=== PATIENT | male | born 1955 | race Caucasian/White ===

== ENCOUNTER 2019-05-25 20:55 | Emergency (ER) | payer MEDICARE, OTHER ==
[~2019-05-25] VITALS: Ht 175 cm; Wt 131.0 kg
[2019-05-25 21:22] LABS: BASOPHILS % (AUTO) 0 % (0-10); EOSINOPHILS # (AUTO) 0.1 10^3/uL (0.0-0.3); EOSINOPHILS % (AUTO) 1 % (0-10); HEMATOCRIT 32 % (40-54); HEMOGLOBIN 10.3 G/DL (13.3-17.7); LYMPHOCYTES # (AUTO) 1.1 X 10^3 (1.0-4.0); LYMPHOCYTES % (AUTO) 8 % (12-44); MEAN CORPUSCULAR HEMOGLOBIN 28 PG (25-34); MEAN CORPUSCULAR HGB CONC 33 G/DL (32-36); MEAN CORPUSCULAR VOLUME 85 FL (80-99); MEAN PLATELET VOLUME 9.6 FL (7.4-10.4); MONOCYTES # (AUTO) 0.8 X 10^3 (0.0-1.0); MONOCYTES % (AUTO) 5 % (0-12); NEUTROPHILS # (AUTO) 13.2 X 10^3 (1.8-7.8); NEUTROPHILS % (AUTO) 87 % (42-75); PLATELET COUNT 450 10^3/uL (130-400); RED CELL DISTRIBUTION WIDTH 14.9 % (10.0-14.5); WHITE BLOOD COUNT 15.2 10^3/uL (4.3-11.0)
[2019-05-25 21:33] LABS: INR 1.2 (0.8-1.4); PROTHROMBIN TIME PATIENT 15.6 SEC (12.2-14.7)
[2019-05-25 21:41] LABS: ALANINE AMINOTRANSFERASE 35 U/L (0-55); ALBUMIN 3.1 GM/DL (3.2-4.5); ALKALINE PHOSPHATASE 163 U/L (40-136); AMYLASE 43 U/L (25-125); BILIRUBIN,TOTAL 0.3 MG/DL (0.1-1.0); BUN/CREATININE RATIO 14; CALCIUM 10.2 MG/DL (8.5-10.1); CARBON DIOXIDE 14 MMOL/L (21-32); CHLORIDE 110 MMOL/L (98-107); CREATINE KINASE 20 U/L (30-200); CREATININE SERUM 4.61 MG/DL (0.60-1.30); GFR ESTIMATED 13; GLUCOSE 220 MG/DL (70-105); LIPASE 29 U/L (8-78); MAGNESIUM 2.7 MG/DL (1.6-2.4); POTASSIUM 5.9 MMOL/L (3.6-5.0); SODIUM 138 MMOL/L (135-145); TOTAL PROTEIN 8.7 GM/DL (6.4-8.2)
[2019-05-25 21:43] LABS: EOSINOPHILS % (MANUAL) 1 %; LYMPHOCYTES % (MANUAL) 10 %; MONOCYTES % (MANUAL) 3 %; NEUTROPHILS % (MANUAL) 86 %; POIKILOCYTOSIS SLIGHT
[2019-05-25 21:47] LABS: BILIRUBIN,URINE NEGATIVE (NEGATIVE); CLARITY,URINE CLEAR; COLOR,URINE YELLOW; GLUCOSE, URINE (UA) NEGATIVE (NEGATIVE); KETONES,URINE 1+ (NEGATIVE); LEUKOCYTE ESTERASE ,URINE NEGATIVE (NEGATIVE); NITRITE,URINE NEGATIVE (NEGATIVE); PH,URINE 5 (5-9); PROTEIN,URINE 2+ (NEGATIVE); UROBILINOGEN,URINE NORMAL (NORMAL)
[2019-05-25 21:49] LABS: CREATINE KINASE MB 0.9 NG/ML (<6.6)
[2019-05-25 22:00] LABS: BACTERIA,URINE FEW /HPF; CALCIUM OXALATE CRYSTALS,UR RARE /LPF; RBC,URINE 0-2 /HPF
[2019-05-25 22:01] LABS: AMORPHOUS SEDIMENT,UR MOD AMOR URATES /LPF
[2019-05-25] MEDS ORDERED: PIPERACILLIN SODIUM/TAZOBACTAM 4.5 GM in NS (IVPB) 100 ML IV ONE (22:15)
--- NOTE | 2019-05-25 22:16 | Diagnostic Imaging Report ---
INDICATION: Chest pain and shortness of breath. Frontal chest obtained at 0942 p.m. Heart and mediastinal silhouette are normal in appearance. The lungs are clear. There is no pneumothorax or pleural fluid. IMPRESSION: Negative chest. Dictated by: Dictated on workstation # [id number]
[2019-05-25] MEDS ORDERED: RT-ALBUTEROL SULF 2.5 MG/3 ML PRE-MIX VIAL INH STA (22:35)
[2019-05-25] MEDS ORDERED: CALCIUM GLUC. 10% 4.65 MEQ/10 ML VIAL IV ONE (22:45)
[2019-05-25] MEDS ORDERED: SOD POLYSTERENE 15 GM/60 ML (KAYEXALATE) UNIT DOSE PO ONE (22:45)
[2019-05-25] MEDS ORDERED: VANCOMYCIN INJECTION 1,000 MG in NS (IVPB) 250 ML IV ONE (22:45)
[2019-05-25] MEDS ORDERED: inSUlin (REGULAR) HUMAN 1 UNIT/0.01 ML (CHARGE PER UNIT) IV ONE (22:45)
[2019-05-25 22:50] LABS: ABG BASE EXCESS -11.3 MMOL/L (-2.5-2.5); ABG OXYGEN SATURATION 97 % (94-100); ABG PCO2 28 MMHG (35-45); ABG PO2 94 MMHG (79-93); ABG TCO2 14.5 MMOL/L (21.0-31.0)
[2019-05-25 22:53] LABS: ABG PH 7.31 (7.37-7.43); ALLENS TEST YES-POS; INSPIRED O2 ROOM AIR; VENTILATOR NO
[2019-05-25 22:54] LABS: PATIENT TEMP 36.9
[2019-05-25] MEDS ORDERED: NS IV 1000 ML 1,000 ML IV ONE (23:01)
[2019-05-25] MEDS ORDERED: ONDANSETRON 4 MG/2 ML (SDV) Z0FRAN IVP ONE (23:30)
[2019-05-26 01:04] VITALS: BP 128/86
--- NOTE | 2019-05-28 21:20 | ED General ---
General Chief Complaint: Respiratory Problems Stated Complaint: SOB,CHEST PAINS Nursing Triage Note: PT PRESENTS FROM HOME, VERBALIZES EXERTIONAL SOB THAT ONSET EARLIER TODAY. PT STATES HE IS A DIABETIC, HAS HAD DYSURIA FOR THE LAST 3-4 DAYS WITH PAIN, PT STATES HE HAS BILATERAL WOUNDS TO THE LOWER EXTERMITIES THAT HE BELIEVES ARE INFECTED. Nursing Sepsis Screen: Possible Sepsis Risk Source of Information: Patient (EXTREMELY POOR HISTORIAN AND IS ALSO HARD OF HEARING; BROTHER GIVES SOME HISTORY BUT IS ALSO A POOR HISTORIAN) History of Present Illness Date Seen by Provider: May 25, 2019 Time Seen by Provider: 21:10 Initial Comments PT ARRIVES VIA EMS--PT LIVES IN [place], [place] PT WITH MULTIPLE COMPLAINTS PT'S MAIN COMPLAINT ON ARRIVAL, IS PAIN/BURNING ON URINATION, URGENCY, FREQUENCY, INCONTINENCE PT ALSO C/O CHEST PAIN--STATES IT IS A SHARP PAIN--"IF I HICCUP, AN UNGODLY SHOOTING, STABBING PAIN GOES ALL ACROSS MY CHEST" ALSO HAS SAME PAIN IF HE COUGHS, OR MOVES, OR SNEEZES NO PAIN NOW ALSO C/O SHORTNESS OF BREATH AT TIMES, BUT NOT NOW NO KNOWN FEVER PT HAS NO IDEA WHAT HIS MEDICATIONS ARE, OR WHEN HE LAST TOOK THEM, OR WHEN HE LAST SAW A DR. STATES DR. HICKS IN [place] IS HIS DR. PT LIVES ALONE PT HAS BOTH LEGS WRAPPED TO HIS KNEES STATES HE USED TO SEE WOUND CARE FOR HIS LEGS, BUT "QUIT GOING OVER A YEAR AGO" STATES "THEY DIDN'T DO ANYTHING EXCEPT POUR SALINE OVER THEM" SO HE QUIT GOING. PT DOES ADMIT TO BEING DIABETIC, BUT DOES NOT CHECK BLOOD SUGAR AND DOES NOT KNOW WHAT MEDICATION HE TAKES FOR IT PT HAS NO PRIOR VISITS HERE, SO NO ADDITIONAL PMH IS OBTAINABLE PCP: DR. HICKS [place] Allergies and Home Medications Allergies Coded Allergies: bacitracin (Verified Allergy, Unknown, 05/25/19) codeine (Verified Allergy, Unknown, 05/25/19) neomycin (Verified Allergy, Unknown, 05/25/19) polymyxin B (Verified Allergy, Unknown, 05/25/19) Patient Home Medication List Home Medication List Reviewed: No (PT DOES NOT KNOW ANY OF HIS MEDICATIONS OR WHAT HE TAKES THEM FOR) Review of Systems Review of Systems Constitutional: No fever Respiratory: cough (OCCASIONAL), short of breath Cardiovascular: chest pain, edema Gastrointestinal: No abdominal pain, No nausea, No vomiting Genitourinary: see HPI, dysuria, frequency, incontinence Musculoskeletal: see HPI (PT DENIES ANY PAIN TO LEGS) Skin: no symptoms reported (DENIES ANY SKIN COMPLAINTS) Psychiatric/Neurological: No Symptoms Reported (DENIES ANY NUMBNESS OR TINGLING ANYWHERE OR ANY NEURO COMPLAINTS) Hematologic/Lymphatic: No Symptoms Reported Immunological/Allergic: no symptoms reported Past Xlasppv-[id number]-Ffdnyl Hx Patient Social History Alcohol Use: Denies Use Recreational Drug Use: No Smoking Status: Never a Smoker Recent Foreign Travel: No Contact w/Someone Who Travel: No Recent Infectious Disease Expo: No Recent Hopitalizations: No Physical Abuse: No Sexual Abuse: No Mistreated: No Fear: No Immunizations Up To Date Tetanus Booster (TDap): Less than 5yrs PED Vaccines UTD: No Seasonal Allergies Seasonal Allergies: No Past Medical History Surgeries: Yes (RIGHT COCHLEAR IMPLANT; "NO EAR DRUM ON THE LEFT" ) Ear Surgery, Gallbladder Respiratory: No (DENIES) Cardiac: Yes (BASED ON PT'S MEDICATIONS--PT DOES NOT KNOW IF HE HAS HTN OR HYPERLIPIDEMIA) High Cholesterol, Hypertension Neurological: No (DENIES) Genitourinary: No (DENIES) Gastrointestinal: No (DENIES) Musculoskeletal: No (DENIES) Endocrine: Yes (OBESITY) Diabetes, Non-Insulin dep Are Your Blood Sugars Over 250: No HEENT: Yes ("NO EARDRUM ON LEFT" ; RIGHT COCHLEAR IMPLANT) Cancer: No Psychosocial: No Integumentary: Yes (DIABETIC LEG/FOOT WOUNDS) Blood Disorders: No Adverse Reaction/Blood Tranf: No Physical Exam Vital Signs Vital Signs - First Documented Capillary Refill : Less Than 3 Seconds Height, Weight, BMI Height: '" Weight: lbs. oz. kg; 42.00 BMI Method: General Appearance: No Apparent Distress, Obese, Other (EXTREMELY MALODOROUS, FILTHY, FLAT AFFECT) HEENT: PERRL/EOMI, Other (POOR DENTITION) Neck: Normal Inspection Respiratory: Normal Breath Sounds, No Accessory Muscle Use, No Respiratory D istress Cardiovascular: Regular Rate, Rhythm (NO TACHYCARDIA ON MY EXAM--RATE IN 90'S), No Murmur Gastrointestinal: Non Tender, Soft Extremity: No Pedal Edema (3+ EDEMA BILATERAL LOWER LEGS), Other (BOTH LEGS WITH DRESSINGS FROM ANKLE TO JUST BELOW KNEES, THEN HAS ONLY SOCKS ON HIS FEET. SOCKS AND DRESSINGS ARE FILTHY, BOTTOM OF SOCKS ARE BLACK, PROFUSE OOZING OF FLUID FROM LEGS AND FEET, SOCKS. SOCKS ARE ADHERED TO SKIN AND SKIN IS GROWN INT O THE SOCKS. EXTREMELY MALODOROUS. PT HAS EXTENSIVE CELLULITIS OF BOTH LEGS AND FEET--TO JUST BELOW KNEES. DIFFUSE MACERATION OF SKIN TO LEGS AND FEET, WITH MULTIPLE ULCERATIONS, WITH LAYERS OF SKIN COMING OFF WITH THE DRESSINGS THEY ARE REMOVED, WELL THE SKIN THAT IS ADHERED TO THE SOCKS. RIGHT 5TH TOE IS CYANOTIC, AND APPEARS TO BE VERY LOOSELY ATTACHED. THERE IS A LARGE, DEEP ULCER TO PLANTAR AND LATERAL ASPECT OF RIGHT FOOT--8-10 CM IN DIAMETER. LEGS ARE VERY WARM TO TOUCH) Neurologic/Psychiatric: Alert, Oriented x3, Sensory Deficit (APPEARS TO HAVE DECREASED SENSATION TO BOTH FEET AND LOWER LEGS. ) Skin: Other (ASA KING) Focused Exam Lactate Level 05/25/19 21:25: Lactic Acid Level 1.74 Progress/Results/Core Measures Suspected Sepsis Recent Fever Within 48 Hours: No Infection Criteria Present: Suspected New Infection New/Unexplained Altered Menta: No Sepsis Screen: Possible Sepsis Risk SIRS Temperature: Pulse: 112 Respiratory Rate: 20 Laboratory Tests 05/25/19 21:15: White Blood Count 15.2H Blood Pressure 128 /86 Mean: 121 05/25/19 21:25: Lactic Acid Level 1.74 Laboratory Tests 05/25/19 21:15: Creatinine 4.61H, INR Comment 1.2, Platelet Count 450H, Total Bilirubin 0.3 Results/Orders Vital Signs/I&O Capillary Refill : Less Than 3 Seconds Blood Pressure Mean: 121 Point of Care Testing Finger Stick Blood Glucose: 208 Progress Note : Progress Note 2326--PT C/O MILD NAUSEA AND VAGUE CHEST DISCOMFORT--REPEAT LAB AND EKG DONE. NO CHANGE. NO DETERIORATION IN PT'S CONDITION DURING ER STAY VITALS REMAINED STABLE ECG Initial ECG Impression Date: May 25, 2019 Initial ECG Impression Time: 21:11 Initial ECG Rate: 112 Initial ECG Rhythm: S.Tach Initial ECG Comparisson: No Previous ECG Available EKG : EKG Time: 23:25 Rate: 119 Rhythm: S.Tach ECG Comparisson: Unchanged Diagnostic Imaging Comments CXR--NORMAL, PER RADIOLOGIST REPORT AT 2222 Reviewed: Reviewed by Me Departure Communication (Admissions) 2224--CALLED [facility], PT NEEDS HIGHER LEVEL OF CARE THAN CAN BE PROVIDED HERE, WITH NEED FOR NEPHROLOGY. 2229--SPOKE WITH DR. LASSITER, HOSPITALIST, HE ADVISES TO GO AHEAD AND GIVE VANCOMYCIN Impression Primary Impression: Sepsis Additional Impressions: Diabetic ulcer of right foot Chest wall pain Bilateral lower leg cellulitis Acidosis NIDDM HTN (hypertension) Anemia Hyperkalemia RENAL FAILURE OF UNKNOWN CHRONICITY INABILITY TO CARE FOR SELF Disposition: XFER SHT-TRM HOSP Condition: Stable Transfer Transfer Facility: [facility] Method of Transfer: EMS Departure-Patient Inst. Referrals: KELLY HICKS MD (PCP/Family) Primary Care Physician LORETTA WRIGHT DO May 28, 2019 21:20
== END 2019-05-26 01:06 | disposition short-term general hospital (02) ==
LOC: ER 20:58
DX: A41.9 Sepsis, unspecified organism (principal); R65.20 Severe sepsis without septic shock; N17.9 Acute kidney failure, unspecified; E11.621 Type 2 diabetes mellitus with foot ulcer; L97.519 Non-pressure chronic ulcer of other part of right foot with unspecified severity; R07.89 Other chest pain; L03.115 Cellulitis of right lower limb; L03.116 Cellulitis of left lower limb; E11.10 Type 2 diabetes mellitus with ketoacidosis without coma; I10 Essential (primary) hypertension; D64.9 Anemia, unspecified; E87.5 Hyperkalemia; E78.00 Pure hypercholesterolemia, unspecified; E66.9 Obesity, unspecified; Z68.41 Body mass index [BMI] 40.0-44.9, adult; Z74.2 Need for assistance at home and no other household member able to render care; Z88.5 Allergy status to narcotic agent; Z88.1 Allergy status to other antibiotic agents; Z88.4 Allergy status to anesthetic agent
CPT/HCPCS: 36415; 36600; 71045; 80053; 81000; 82150; 82550; 82553; 82805; 82962; 83605; 83690; 83735; 83874; 83880; 84484; 85007; 85027; 85610; 85730; 87040; 87077; 87185; 87804; 93005; 93041; 94640; 96361; 96365; 96367; 96375